=== PATIENT | female | born 1995 ===

== ENCOUNTER 2023-07-10 05:35 | Outpatient (CLI) | payer MEDICAID ==
[~2023-07-10] VITALS: Ht 157.5 cm; Wt 69.5 kg
[2023-07-11] MEDS ORDERED: PREN-8 PO (09:59)
[2023-07-11] MEDS ORDERED: FERR-84 PO (09:59)
== END 2023-07-11 10:26 | disposition home or self-care (01) ==
LOC: PREOP 05:35
PROVIDERS: ATTEND Obstetrics & Gynecology
DX: Z01.818 Encounter for other preprocedural examination (principal)